=== PATIENT | male | born 1995 | race Caucasian/White ===

== ENCOUNTER 2016-11-15 07:49 | Emergency (ER) | payer OTHER ==
[2016-11-15 07:58] VITALS: BP 146/76
--- NOTE | 2016-11-15 08:15 | ED Physician Documentation ---
PD HPI UPPER EXT INJURY - Stated complaint Stated Complaint: L SMALL FINGER INJURY - Chief complaint Chief Complaint: Ext Problem - History obtained from History obtained from: Patient - History of Present Illness Location: Left, Finger (5th) Type of injury: Blunt / blow Where injury occurred: Home Timing - onset: Yesterday Timing - duration: Days (1) Timing - details: Abrupt onset, Still present Improved by: Rest, Immobilization Worsened by: Moving, Palpating Associated symptoms: Swelling. No: Weakness, Numbness, Tingling Contributing factors: No: Anticoagulated Similar symptoms before: Has not had sx before Recently seen: Not recently seen - Additonal information Additional information: 21-year-old male was leaning up against the door when his shut the door and accidentally shut his left fifth digit in the door. This was on the nonhinged side. He has some pain in the tip of his finger is able to move the finger and all the joints has some pain and swelling distally. Review of Systems Constitutional: denies: Fever Respiratory: denies: Cough GI: denies: Vomiting Skin: denies: Laceration (s) Musculoskeletal: reports: Extremity pain, Extremity swelling. denies: Neck pain , Back pain Neurologic: denies: Generalized weakness, Focal weakness, Numbness PD PAST MEDICAL HISTORY - Past Medical History Past Medical History: Yes GI: GERD, Crohn's disease - Past Surgical History Past Surgical History: No - Allergies Allergies/Adverse Reactions: Allergies Allergy/AdvReac Type Severity Reaction Status Date / Time No Known Drug Allergies Allergy Verified 11/15/16 07:56 - Social History Does the pt smoke?: Yes Smoking Status: Current some day smoker PD ED PE NORMAL - Vitals Vital signs reviewed: Yes (hypertensive ) - General General: No acute distress, Well developed/nourished - HEENT HEENT: Atraumatic, PERRL - Respiratory Respiratory: No respiratory distress - Derm Derm: Normal color, Warm and dry, No rash - Extremities Extremities: No deformity, Other (There is pain and swelling to the distal phlange of the left 5th digit. The patient is able to flex and extend at each joint in the finger and distal n/v is intact. ) - Neuro Neuro: No motor deficit, No sensory deficit - Psych Psych: Normal mood, Normal affect Results - Vitals Vitals: Vital Signs - 24 hr 11/15/16 07:56 Temperature 36.8 C Heart Rate 80 Respiratory 16 Rate Blood Pressure 146/76 H O2 Saturation 98 Oxygen O2 Source Room air - Rads (name of study) Left fingers Radiology: Prelim report reviewed (Impression: 1. No apparent fracture or bony malalignment.), EMP read indepedently, See rad report PD MEDICAL DECISION MAKING - ED course Complexity details: reviewed results, re-evaluated patient, considered differential, d/w patient, d/w family ED course: 21-year-old male with a crush injury to the left fifth digit tip does not have evidence of fracture on plain films. His finger is chapin taped. Departure - Departure Disposition: 01 Home, Self Care Clinical Impression: Fingertip contusion Qualifiers: Encounter type: initial encounter Qualified Code(s): S60.00XA - Contusion of unspecified finger without damage to nail, initial encounter Condition: Stable Instructions: ED Contusion Finger Follow-Up: [facility] [Provider Group] Discharge Date/Time: 11/15/16 08:34
--- NOTE | 2016-11-15 08:24 | XRAY Preliminary Report ---
Exam: XR Finger(s) LT IMPRESSION: 1. No apparent fracture or bony malalignment. [facility] SITE ID: [id number]
--- NOTE | 2016-11-15 08:27 | XRAY Report ---
EXAM: LEFT LITTLE FINGER RADIOGRAPHY EXAM DATE: 11/15/2016 08:12 AM. CLINICAL HISTORY: Left 5th digit injury. Slammed finger in car door last night. COMPARISON: None. TECHNIQUE: 3 views. FINDINGS: Bones: No fracture or bone lesion. Joints: No subluxation. Joint spaces are preserved. Soft Tissues: Mild swelling. IMPRESSION: 1. No apparent fracture or bony malalignment. [facility] Referring Provider Line: [phone] SITE ID: [id number]
== END 2016-11-15 08:34 | disposition home or self-care (01) ==
LOC: ED 07:49
DX: S60.052A Contusion of left little finger without damage to nail, initial encounter (principal); W23.1XXA Caught, crushed, jammed, or pinched between stationary objects, initial encounter; Y92.019 Unspecified place in single-family (private) house as the place of occurrence of the external cause; K21.9 Gastro-esophageal reflux disease without esophagitis; K50.90 Crohn's disease, unspecified, without complications; F17.200 Nicotine dependence, unspecified, uncomplicated
CPT/HCPCS: 73140; 99283